=== PATIENT | male | born 1975 | race Two or more races ===

== ENCOUNTER 2017-11-16 22:05 | Inpatient (IN) | payer OTHER ==
[~2017-11-16] VITALS: Ht 172.7 cm; Wt 71.7 kg
[~2017-11-16 22:05] MED LIST: ASPI-621 PO; ATOR40TA78 PO; CARV6.2512 PO; INSU100V8 SQ; METF500T PO; METF500T27 PO
[2017-11-16 22:30] LABS: BASOPHILS # (AUTO) 0.02 x10^3/uL (0-0.1); BASOPHILS % (AUTO) 0 % (0-1); EOSINOPHILS # (AUTO) 0.07 x10^3/uL (0-0.4); EOSINOPHILS % (AUTO) 1 % (1-7); LYMPHOCYTES # (AUTO) 2.09 x10^3/uL (1-3.4); LYMPHOCYTES % (AUTO) 30 % (22-44); MD NO; MEAN CORPUSCULAR HEMOGLOBIN 28.2 pg (27.5-34.5); MEAN CORPUSCULAR HGB CONC 33.7 g/dL (33.2-36.2); MEAN CORPUSCULAR VOLUME 83.7 fL (81-97); MEAN PLATELET VOLUME 8.9 fL (7.4-10.4); MONOCYTES # (AUTO) 0.64 x10^3/uL (0.2-0.8); MONOCYTES % (AUTO) 9 % (2-9); NEUTROPHILS # (AUTO) 4.23 x10^3/uL (1.8-6.8); NEUTROPHILS % (AUTO) 60 % (42-75); PH, VENOUS 7.301 pH (7.320-7.420); PLATELET COUNT 200 x10^3/uL (130-400); RED BLOOD COUNT 4.09 x10^6/uL (4.38-5.82); RED CELL DISTRIBUTION WIDTH 12.9 % (9.4-14.8)
[2017-11-16] MEDS ORDERED: ONDANSETRON 2MG/ML, 2ML IVPush ONE (22:30)
[2017-11-16 22:43] LABS: ALANINE AMINOTRANSFERASE 23 U/L (12-78); ALBUMIN 3.9 g/dL (3.4-5.0); ANION GAP 6 mmol/L (5-15); CALCIUM 9.3 mg/dL (8.5-10.1); CHLORIDE 109 mmol/L (98-107)
[2017-11-16 22:45] LABS: SALICYLATE LEVEL < 1.7 mg/dL (2.8-20.0)
[2017-11-16] MEDS ORDERED: DEXTROSE 50%, 50ML SYRINGE ONE ×2 (22:46→23:21)
[2017-11-16] MEDS ORDERED: DEXTROSE 10%, 1,000ML IV ONE (22:46)
[2017-11-16 22:51] LABS: ACETONE, SERUM Negative (Negative)
[2017-11-16 22:52] LABS: ALKALINE PHOSPHATASE 77 U/L (45-117); BILIRUBIN,TOTAL 0.2 mg/dL (0.2-1.0); CREATININE 1.06 mg/dL (0.7-1.3); TOTAL PROTEIN 7.4 g/dL (6.4-8.2)
[2017-11-16 22:53] LABS: ACETAMINOPHEN < 2 mcg/mL (10-30)
[2017-11-16] MEDS ORDERED: DEXTROSE 50%, 50ML SYRINGE IVPush ONE ×2 (23:00→23:30)
[2017-11-16] MEDS ORDERED: ONDANSETRON 2MG/ML, 2ML IVPush PRN (23:30)
[2017-11-16] MEDS ORDERED: ACETAMINOPHEN 325 MG TABLET PO PRN (23:30)
[2017-11-16] MEDS ORDERED: DEXTROSE 10% 1,000 ML IV SCH (23:30)
[2017-11-17] MEDS ORDERED: ATORVASTATIN 40 MG TABLET PO SCH
[2017-11-17 00:05] VITALS: BP_SYST 189; BP_DIAS 84; BP_DIAS 85
[2017-11-17] MEDS ORDERED: D5%-0.45% NACL 1,000 ML IV SCH (02:30)
[2017-11-17 04:00] VITALS: BP 120/70
[2017-11-17] MEDS ORDERED: SODIUM CHLORIDE 0.9% 1,000 ML IV SCH (04:00)
[2017-11-17 04:32] LABS: ALBUMIN 3.2 g/dL (3.4-5.0); ANION GAP 7 mmol/L (5-15); CALCIUM 8.6 mg/dL (8.5-10.1); CHLORIDE 106 mmol/L (98-107)
[2017-11-17 04:35] LABS: ALANINE AMINOTRANSFERASE 23 U/L (12-78); ALKALINE PHOSPHATASE 69 U/L (45-117); BILIRUBIN,TOTAL 0.3 mg/dL (0.2-1.0); CREATININE 1.13 mg/dL (0.7-1.3); TOTAL PROTEIN 6.4 g/dL (6.4-8.2)
[2017-11-17 04:45] LABS: CULTURE INDICATED? NO; MICROSCOPIC AUTO
[2017-11-17] MEDS ORDERED: ASPIRIN 81 MG TABLET EC PO SCH (06:00)
[2017-11-17] MEDS ORDERED: CARVEDILOL 6.25 MG TABLET PO SCH (06:00)
[2017-11-17] MEDS: INSULIN LISPRO 100 UNITS/ML, PEN SQ-INSULIN SCH ×2 (08:38→11:09)
== END 2017-11-17 12:00 | disposition home or self-care (01) | DRG 637 ==
LOC: ED 23:14 → SUATTDRO 23:19 → EDIP 23:25 → CCU 23:58 → DCLOUNGE 11-17 11:25
PROVIDERS: ADMIT Hospitalist; ATTEND Hospitalist
DX: E11.649 Type 2 diabetes mellitus with hypoglycemia without coma (principal); G93.41 Metabolic encephalopathy; E86.0 Dehydration; I10 Essential (primary) hypertension; I25.2 Old myocardial infarction; Z79.4 Long term (current) use of insulin
CPT/HCPCS: 36415; 70450; 71045; 80053; 80307; 80329; 81001; 82010; 82140; 82803; 82962; 83735; 84100; 85025; 87081; 93005; 96374; 96375; 96376; J2405; G0480; J1815; J7030

== ENCOUNTER 2017-12-02 16:09 | Emergency (ER) | payer OTHER ==
[~2017-12-02] VITALS: Ht 182.9 cm; Wt 63.0 kg
[2017-12-02] MEDS ORDERED: DEXTROSE 50%, 50ML SYRINGE ONE (16:41)
[2017-12-02] MEDS ORDERED: ASPIRIN 81 MG TABLET CHEW ONE (16:51)
[2017-12-02] MEDS ORDERED: ASPIRIN 81 MG TABLET CHEW PO ONE (17:00)
[2017-12-02] MEDS ORDERED: SODIUM CHLORIDE 0.9% 1,000ML IVBOLUS ONE (17:00)
[2017-12-02] MEDS ORDERED: DEXTROSE 50%, 50ML SYRINGE IVPush ONE (17:00)
[2017-12-02 17:04] LABS: BASOPHILS # (AUTO) 0.01 x10^3/uL (0-0.1); BASOPHILS % (AUTO) 0 % (0-1); EOSINOPHILS # (AUTO) 0.11 x10^3/uL (0-0.4); EOSINOPHILS % (AUTO) 2 % (1-7); LYMPHOCYTES # (AUTO) 1.73 x10^3/uL (1-3.4); LYMPHOCYTES % (AUTO) 27 % (22-44); MD NO; MEAN CORPUSCULAR HEMOGLOBIN 28.7 pg (27.5-34.5); MEAN CORPUSCULAR HGB CONC 34.1 g/dL (33.2-36.2); MEAN CORPUSCULAR VOLUME 84.1 fL (81-97); MEAN PLATELET VOLUME 9.1 fL (7.4-10.4); MONOCYTES # (AUTO) 0.49 x10^3/uL (0.2-0.8); MONOCYTES % (AUTO) 8 % (2-9); NEUTROPHILS # (AUTO) 4.12 x10^3/uL (1.8-6.8); NEUTROPHILS % (AUTO) 64 % (42-75); PLATELET COUNT 214 x10^3/uL (130-400); RED BLOOD COUNT 3.29 x10^6/uL (4.38-5.82); RED CELL DISTRIBUTION WIDTH 13.6 % (9.4-14.8)
[2017-12-02 17:16] LABS: ALANINE AMINOTRANSFERASE 18 U/L (12-78); ALBUMIN 2.8 g/dL (3.4-5.0); ANION GAP 10 mmol/L (5-15); CALCIUM 7.3 mg/dL (8.5-10.1); CHLORIDE 112 mmol/L (98-107); CREATININE 1.52 mg/dL (0.7-1.3)
[2017-12-02 17:20] LABS: ALKALINE PHOSPHATASE 55 U/L (45-117); BILIRUBIN,TOTAL 0.1 mg/dL (0.2-1.0); TOTAL PROTEIN 5.2 g/dL (6.4-8.2); TROPONIN I < 0.015 ng/mL (0.000-0.045)
[2017-12-02 20:27] LABS: TROPONIN I < 0.015 ng/mL (0.000-0.045)
[2017-12-02 21:08] VITALS: BP 120/86
== END 2017-12-02 21:51 | disposition home or self-care (01) ==
LOC: ED 19:40
DX: I95.9 Hypotension, unspecified (principal); E86.0 Dehydration; I10 Essential (primary) hypertension; E11.9 Type 2 diabetes mellitus without complications; I25.2 Old myocardial infarction
CPT/HCPCS: 71045; 80053; 82962; 83605; 83880; 84484; 85025; 93005; 96374; 99285; J7030

== ENCOUNTER 2018-01-03 14:16 | Emergency (ER) | payer OTHER ==
[~2018-01-03] VITALS: Ht 167.6 cm; Wt 66.0 kg
[2018-01-03 15:01] LABS: BASOPHILS # (AUTO) 0.02 x10^3/uL (0-0.1); BASOPHILS % (AUTO) 0 % (0-1); EOSINOPHILS # (AUTO) 0.06 x10^3/uL (0-0.4); EOSINOPHILS % (AUTO) 1 % (1-7); LYMPHOCYTES # (AUTO) 1.83 x10^3/uL (1-3.4); LYMPHOCYTES % (AUTO) 32 % (22-44); MD NO; MEAN CORPUSCULAR HEMOGLOBIN 28.8 pg (27.5-34.5); MEAN CORPUSCULAR HGB CONC 34.2 g/dL (33.2-36.2); MEAN PLATELET VOLUME 9.6 fL (7.4-10.4); MONOCYTES # (AUTO) 0.39 x10^3/uL (0.2-0.8); MONOCYTES % (AUTO) 7 % (2-9); NEUTROPHILS # (AUTO) 3.46 x10^3/uL (1.8-6.8); NEUTROPHILS % (AUTO) 60 % (42-75); PLATELET COUNT 251 x10^3/uL (130-400); RED BLOOD COUNT 4.19 x10^6/uL (4.38-5.82); RED CELL DISTRIBUTION WIDTH 13.2 % (9.4-14.8)
[2018-01-03 15:14] LABS: ALANINE AMINOTRANSFERASE 21 U/L (12-78); ANION GAP 7 mmol/L (5-15); CALCIUM 8.5 mg/dL (8.5-10.1); CHLORIDE 100 mmol/L (98-107); CREATININE 1.74 mg/dL (0.7-1.3)
[2018-01-03 15:15] LABS: PH, VENOUS 7.299 pH (7.320-7.420)
[2018-01-03 15:16] LABS: ALKALINE PHOSPHATASE 100 U/L (45-117); BILIRUBIN,TOTAL 0.3 mg/dL (0.2-1.0); TOTAL PROTEIN 7.6 g/dL (6.4-8.2)
[2018-01-03 15:25] LABS: TROPONIN I < 0.015 ng/mL (0.000-0.045)
[2018-01-03 15:27] LABS: ACETONE, SERUM Trace (10mg/dL) mg/dL (Negative)
[2018-01-03] MEDS ORDERED: INSULIN REGULAR 100 UNITS/ML, 3ML VIAL ONE (15:58)
[2018-01-03] MEDS ORDERED: INSULIN REGULAR 100 UNITS/ML, 3ML VIAL IVPush ONE (16:00)
[2018-01-03] MEDS ORDERED: SODIUM CHLORIDE 0.9% 1,000 ML IV ONE (16:00)
[2018-01-03 16:27] LABS: CULTURE INDICATED? NO; MICROSCOPIC NOT IND
[2018-01-03] MEDS ORDERED: SODIUM CHLORIDE 0.9% 1,000 ML IV SCH (17:25)
[2018-01-03] MEDS ORDERED: hydrALAzine 20 MG/ML, 1ML IVPush PRN (17:30)
[2018-01-03] MEDS ORDERED: DEXTROSE 4 GM TAB.CHEW PO PRN (17:30)
[2018-01-03] MEDS ORDERED: DEXTROSE 50%, 50ML SYRINGE IVPush PRN (17:30)
[2018-01-03] MEDS ORDERED: NITROGLYCERIN 0.4 MG BOTTLE (25 TABS) SL PRN (17:30)
[2018-01-03] MEDS ORDERED: ACETAMINOPHEN 325 MG TABLET PO PRN (17:30)
[2018-01-03] MEDS ORDERED: DOCUSATE 100 MG CAPSULE PO PRN (17:30)
[2018-01-03] MEDS ORDERED: POLYETHYLENE GLYCOL 17 GM PACKET PO PRN (17:30)
[2018-01-03] MEDS ORDERED: morphine SULFATE 10 MG/ML, 1ML IVPush PRN (17:30)
[2018-01-03] MEDS ORDERED: HEPARIN 5,000 UNITS/ML, 1ML SQ SCH (17:30)
[2018-01-03] MEDS ORDERED: BISACODYL 10 MG SUPP PR PRN (17:30)
[2018-01-03] MEDS ORDERED: GLUCAGON 1 MG IM PRN (17:30)
[2018-01-03] MEDS ORDERED: HYDROcodone/APAP 5/325 TABLET PO PRN (17:30)
[2018-01-03] MEDS ORDERED: INSULIN LISPRO 100 UNITS/ML, PEN SQ-INSULIN SCH (17:30)
[2018-01-03] MEDS ORDERED: ONDANSETRON ODT 4 MG PO PRN (17:30)
[2018-01-03 17:53] VITALS: BP 115/74
[2018-01-03] MEDS ORDERED: INSULIN GLARGINE 100 UNITS/ML, PEN SQ-INSULIN SCH (21:00)
[2018-01-03] MEDS ORDERED: FAMOTIDINE 20 MG TABLET PO SCH (21:00)
[2018-01-03] MEDS ORDERED: SODIUM CHLORIDE FLUSH 10ML SYR IVF SCH (21:00)
[2018-01-04] MEDS ORDERED: ASPIRIN 325 MG TABLET PO SCH (06:00)
== END 2018-01-03 18:19 | disposition left against medical advice (07) ==
LOC: ED 16:13 → EDIP 16:25 → UNDOADMOB 16:25 → INTOOBSV 16:25
DX: R07.89 Other chest pain (principal); E11.65 Type 2 diabetes mellitus with hyperglycemia; N17.9 Acute kidney failure, unspecified; I10 Essential (primary) hypertension; E87.1 Hypo-osmolality and hyponatremia; G89.29 Other chronic pain; I95.9 Hypotension, unspecified; R42 Dizziness and giddiness; Z79.4 Long term (current) use of insulin
CPT/HCPCS: 71045; 80053; 81003; 82010; 82803; 82962; 83036; 83735; 84100; 84484; 85025; 93005; 96361; 96374; 99285; J7030